=== PATIENT | female | born 1955 | race Caucasian/White ===

== ENCOUNTER 2023-03-21 18:18 | Emergency (ER) | payer MEDICARE, SELFPAY ==
[2023-03-21 18:22] VITALS: BP 156/88; PULSE 86; TEMP 36.8; O2SAT 96; BMI 37.8
--- NOTE | 2023-03-21 18:29 | W.ED.UPPEXIN ---
HPI - Extremity Injury (Upper) General: Chief Complaint: Wound/Laceration Stated Complaint: Lac Time Seen by Provider: 03/21/23 18:22 History of Present Illness: Patient presents to the ER with complaints of laceration on her right anterior wrist. Patient states she was trying get a bejarano out of her door and she cut her wrist on the sharp edge of the door. Bleeding is controlled. Patient has unknown tetanus status. Patient is only on 81 mg aspirin daily and no other anticoagulants. Patient has good sensation and cap refill in her fingers. Review of Systems General: Reports: 10 or more systems reviewed and unremarkable except in HPI and below Physical Exam Const: COMMON NORMALS: no acute distress, average body habitus, patient oriented x3, no limitations, healthy appearing, alert and well nourished HENMT: COMMON NORMALS: normocephalic, atraumatic, hearing grossly normal bilaterally, external ears normal, Normal external nose present, moist oral mucous membranes and oropharynx normal HEAD & SCALP: normocephalic and atraumatic NOSE: Normal external nose present EXTERNAL EAR: Yes external ears normal Neck/C-Spine: COMMON NORMALS: no JVD Chest: COMMONS NORMALS: normal inspection of the chest and normal palpation of entire chest wall Resp: COMMON NORMALS: normal respiratory effort, No retractions, No use of accessory muscles and clear to auscultation bilaterally AUSCULTATION: clear to auscultation bilaterally Cardio: COMMON NORMALS: no JVD, regular rate, regular rhythm, S1 normal heart sound present, S2 normal heart sound present, No gallops present (Cardio), No clicks present (Cardio), No murmurs present (Cardio) and No rub (Cardio) RATE: regular rate RHYTHM: regular rhythm HEART SOUNDS: S1 normal heart sound present and S2 normal heart sound present GI: COMMON NORMALS: Normal to inspection, nondistended, normoactive bowel sounds present, Soft to palpation, non-tender, No hepatosplenomegaly present and no masses PALPATION: Yes Soft to palpation and Yes No hepatosplenomegaly present Neuro: COMMON NORMALS: patient oriented x3 SENSORIUM/ORIENTATION: Yes alert Procedures Laceration Laceration 1: Site: upper extremity (Right anterior wrist) Side (If applicable): right Size (cm): 3 Description: flap and irregular Depth: simple, single layer Local Anesthetic: lidocaine 1% Amount of anesthesia used (mL): 4 Pre-repair: wound explored (Cleansed with Betadine) Skin layer closed with: nylon Size (cm): 4-0 Number of sutures: 8 Technique: simple, interrupted Course Vital Signs: Vital signs: Vital Signs Temperature 98.3 F 03/21/23 18:22 Pulse Rate 86 03/21/23 18:22 Blood Pressure 156/88 03/21/23 18:22 Pulse Oximetry 96 03/21/23 18:22 Oxygen Delivery Me thod Room Air 03/21/23 18:22 MDM - Extremity Injury (Upper) Medical Decision Making Patient approximately a 3 cm laceration to right anterior wrist. This was cleansed with Betadine and sutured with 5-0 nylon without complication. Patient to follow-up with her PCP in approximately 7 days for further evaluation and treatment of probable suture removal. Patient was given an updated Tdap in ER. Differential Diagnosis Unlikely sprain and strain of wrist, fracture of wrist, finger sprain, dislocation of finger, Colles' fracture, fracture of hand, dislocation of shoulder, fracture of humerus or fracture of clavicle Medical Records I reviewed the patient's medical records. Lab Data I reviewed the patient's lab results. No radiology studies performed this visit Discharge Plan Discharge Patient Disposition: Home Clinical Impression: Laceration Condition: Stable Discharge Orders: Discharge ED (Routine); Ordered 03/21/23 Ordered By: Saul Neff Patient Instructions: Laceration (ED) Activity Restrictions/Additional Instructions: Please keep wound clean and dry change bandages as necessary. Please follow-up with primary care physician within 7 to 10 days for reevaluation and probable suture removal. If you have worsening pain red streaking or purulent drainage please come back to the ER. Coding Level of Care Code ED [employer] for Benigno Rahman
[2023-03-21] MEDS: tetanus-dipt-pertussis 0.5 mL SDV IM (19:02)
== END 2023-03-21 20:22 | disposition home or self-care (01) ==
PROVIDERS: Emergency Provider Emergency Medicine; PCP Family Medicine
DX: S61.511A Laceration without foreign body of right wrist, initial encounter (principal); W26.9XXA Contact with unspecified sharp object(s), initial encounter; Z23 Encounter for immunization
CPT/HCPCS: 12002; 90471; 90715; 99283

== ENCOUNTER 2024-05-28 14:41 | Outpatient (CLI) | payer MEDICARE, SELFPAY ==
--- NOTE | 2024-05-28 14:46 | CT_ITS ---
WS: [id number] LDCT LUNG CANCER SCREENING HISTORY: NICOTINE DEPENDENCE,CIGARETTES TECHNIQUE: Axial imaging performed from the apices to 1 cm below the costophrenic angles. Coronal and sagittal reformats are submitted with axial MIP series. All CT scans at [facility] use at least one of these dose optimization techniques: automated exposure control; mA and/or kV adjustment per patient size (includes targeted exams where dose is matched to clinical indication); or iterative reconstruction. DLP: 144.80 mGy.cm DIvol: Mean CTDIvol: 3.80 (mGy) COMPARISON: None available. Diagnostic quality: Satisfactory Lungs: Lung volumes are slightly decreased due to poor inspiration. Bilateral scattered hazy attenuation throughout both lungs and areas of groundglass attenuation and mosaic attenuation. This is probably due to smoking history and respiratory bronchiolitis. No mass or nodule. Heart: Normal size heart with no pericardial effusion.. Other findings: Increase in thoracic kyphosis. Disc spaces are narrowed. Hypertrophic endplate osteophytes. Prior cholecystectomy. No adrenal mass. CT/CT lung screening 21538 IMPRESSION: LUNG-RADS: 1-Negative FOLLOW UP: 12 Month: Continue annual screening with LDCT OTHER FINDINGS (S MODIFIER): None.
== END 2024-05-28 14:42 | disposition home or self-care (01) ==
PROVIDERS: PCP Family Medicine; Visit Provider Family Medicine
DX: Z12.2 Encounter for screening for malignant neoplasm of respiratory organs (principal); F17.210 Nicotine dependence, cigarettes, uncomplicated; R91.8 Other nonspecific abnormal finding of lung field; M40.294 Other kyphosis, thoracic region; R93.7 Abnormal findings on diagnostic imaging of other parts of musculoskeletal system; M25.78 Osteophyte, vertebrae; Z90.49 Acquired absence of other specified parts of digestive tract
CPT/HCPCS: 71271